=== PATIENT | female | born 1960 | race Caucasian/White ===

== ENCOUNTER 2016-03-24 13:02 | Day surgery (SDC) | payer BC ==
[~2016-03-24] VITALS: Ht 152.4 cm; Wt 59.5 kg
[2016-03-24] MEDS ORDERED: ATEN-51 PO (13:56)
[2016-03-24] MEDS ORDERED: ASPI81TA3 PO (13:56)
[2016-03-24 14:16] VITALS: BP 169/81; PULSE 61; RESP 16
[2016-03-24] MEDS ORDERED: MIDAZOLAM 1 MG/ML 2 ML INJ ONE ×2 (15:14)
[2016-03-24] MEDS ORDERED: FENTAnyl 50 MCG/ML VIAL ONE (15:14)
[2016-03-24 15:44] VITALS: BP 152/86; PULSE 56; RESP 20
--- NOTE | 2016-03-24 17:21 | GILP ---
DATE OF PROCEDURE: 03/24/2016 NAME OF PROCEDURE: Colonoscopy and biopsy. SURGEON: Yanira Lepe MD PREOPERATIVE DIAGNOSIS: Positive occult blood in stool. POSTOPERATIVE DIAGNOSES 1. Colonoscopy all the way to the cecum. 2. Small cecal polyp was removed using the biopsy forceps. 3. Internal and external hemorrhoids. INDICATION FOR THE PROCEDURE: Ms. Thelma Fuchs is a 55-year-old female patient who was noted to hav e positive occult blood in stool. The patient was scheduled for colonoscopy for further evaluation. The procedure and possible complications are well explained to the patient, she understood and conse nted to the procedure. DESCRIPTION OF PROCEDURE: Under the influence of fentanyl and Versed, the colonoscope was carefully introduced in the rectum and under direct vision, it was advanced all the way to the cecum. FINDINGS: The patient had a small cecal polyp and it was removed using the biopsy forceps. The pat ient was noted to have internal and external hemorrhoids. She tolerated the procedure very well and there was no complication from the procedure. At the end of the procedure, she was awake with stable vital signs and she was discharged home to the care of h er family. IMPRESSION: 1. Colonoscopy all the way to the cecum. 2. Small cecal polyp was removed. 3. Internal and external hemorrhoids. PLAN: Next screening colonoscopy in 10 years. Positive occult blood in stool is secondary to hemor rhoids. Dictated By: YANIRA CHUN/ORLIN Conf#: [id number] DID#: [id number]
== END 2016-03-25 08:09 | disposition home or self-care (01) ==
LOC: GIL 13:02
PROVIDERS: ATTEND Internal Medicine Gastroenterology
DX: K92.1 Melena (principal); D12.0 Benign neoplasm of cecum; K64.4 Residual hemorrhoidal skin tags; K64.8 Other hemorrhoids; I10 Essential (primary) hypertension
CPT/HCPCS: 45380; 88305; J2250; J3010; Z7610